=== PATIENT | male | born 1990 | race African-American/Black ===

== ENCOUNTER 2019-07-13 04:12 | Emergency (ER) | payer OTHER ==
[~2019-07-13] VITALS: Ht 185.4 cm; Wt 94.3 kg
[~2019-07-13 04:12] MED LIST: APAP500; AUGMENTIN 875875 MG PO; CLARITIN10 MG PO; DIPHENHYDRAMINE25 M1; PEPCID20 MG PO; PREDNISONE 20 M20 M1 PO; ZPAK PO
[2019-07-13 05:26] VITALS: BP 127/78
--- NOTE | 2019-07-13 14:32 | EKG ---
[address] [place] [address] ELECTROCARDIOGRAM REPORT Name: MAJO UREÑA Room #: DEP [facility]ITALAleksandra#: [id number] ������������������ Admission: 07/13/19 ������������������ Attend Phys: Discharge: 07/13/19 ������������������ Date of : 89 Report #: [id number] ����������������������������������������������������������������� [id number] THIS REPORT FOR: //name// [facility] ED Test Date: 2019-07-13 Test Time: 04:29:39 Pat Name: MAJO UREÑA Department: Room: Gender: M [employer] Coordinator: ADITHYA : 1990 Requested By: Jose Taylor Order Number: [id number] MD: Oc Prescott Measurements Intervals [place] Rate: 68 P: 3 NH: 138 QRS: 31 QRSD: 96 T: 30 QT: 373 QTc: 397 Interpretive Statements Sinus rhythm Normal tracing No previous ECG available for comparison Electronically Signed On 07-13-2019 14:32:13 CDT by Oc Prescott [email or web address] ��������������������������������������������� <ELECTRONICALLY SIGNED> ���������������������������������������� By: Oc Prescott MD, [facility] ��������������������������������������������� 07/13/19 1432 0429 0429 Oc Prescott MD, FACC /EPI
== END 2019-07-13 05:31 | disposition home or self-care (01) ==
LOC: ER 04:12
DX: R07.9 Chest pain, unspecified (principal); F17.210 Nicotine dependence, cigarettes, uncomplicated; Z88.0 Allergy status to penicillin

== ENCOUNTER 2019-08-28 11:29 | Emergency (ER) | payer OTHER ==
[~2019-08-28] VITALS: Ht 185.4 cm; Wt 93.9 kg
[2019-08-28 11:36] VITALS: BP 148/92
[2019-08-28] MEDS ORDERED: ACID CONTROLLER20 MG PO (12:04)
[2019-08-28] MEDS ORDERED: MEDROLDOSEPACK PO (12:04)
== END 2019-08-28 12:28 | disposition home or self-care (01) ==
LOC: ER 11:29
DX: L50.0 Allergic urticaria (principal); F17.210 Nicotine dependence, cigarettes, uncomplicated; Z88.0 Allergy status to penicillin; Z88.1 Allergy status to other antibiotic agents